=== PATIENT | female | born 1975 | race African-American/Black ===

== ENCOUNTER 2016-06-06 07:24 | Inpatient (IN) | payer OTHER ==
--- NOTE | 2016-06-06 07:29 | PDOC ---
Attending Attestation - Resident Resident Name: RonaldKatiuska - ED Attending Attestation I have performed the following: I have examined & evaluated the patient, The case was reviewed & discussed with the resident, I agree w/resident's findings & plan, Exceptions are as noted - HPI HPI: 06/06/16 07:38 The patient is a 40-year-old female with a significant past medical history of morbid obesity, 2, cholecystectomy, lap band placement, known abdominal hernia, who presents to the emergency department with abdominal pain. She denies fever, chills, sweats. She denies nausea, vomiting, diarrhea. Her last bowel movement was last night. She is passing flatus. No vaginal discharge, monogomous. 06/06/16 07:42 06/06/16 12:39 - Physicial Exam PE: 06/06/16 07:29 The patient is well-appearing and in no acute distress Vitals noted Abdominal examination is limited by body habitus but she has left lower quadrant tenderness, without rebound or guarding 06/06/16 07:39 06/06/16 08:46 - Medical Decision Making 06/06/16 07:29 The patient is well-appearing and in no acute distress Will obtain labs including lactate and CRP Will obtain CT of the abdomen and pelvis with oral and IV contrast I discussed the fact that there is no evidence of association between shellfish allergy and IV contrast allergy with the patient. She declined premedication. Will volume resuscitate with normal saline Will provide analgesia with IV Tylenol (she refused Morphine) 06/06/16 08:45 Pain improved Labs pending 06/06/16 09:04 She has requested pre-medication Will administer IV solumedrol 06/06/16 09:56 She now refuses IV contrast despite pre-medication Will CT without IV contrast 06/06/16 11:02 CT results noted Pain has almost completely resolved Will obtain transvaginal ultrasound to rule out ovarian pathology 06/06/16 11:21 Preliminary reading of ultrasound: Bilateral ovarian cysts, without free fluid Mildly elevated CRP noted Her pain continues 06/06/16 11:45 Ultrasound noted Pain continues Tenderness continues Will place on observation and request surgical consultation Clinical impression: Abdominal pain; unspecified Case discussed in detail with admitting provider including history, physical exam and ancillary studies. Admitting physician has assumed care for the patient, will follow all pending diagnostics and will complete the evaluation and treatment. 06/06/16 15:16 The patient had an episode of acute onset palpitations associated with extreme anxiety The palpitations clearly preceded the anxiety and the monitor showed an abrupt transition from a normal hear rate to the tachyacrdia No complex tachycardia with ventricular rate of approximately 160 was seen on the monitor Radial pulses and dorsal pedal pulses full, consistent with normotension Ocular massage was performed along with Valsalva maneuver Heart rate slowed rapidly to the 120s She states that she has a history of panic attack, and "mitral valve regurgitation" but apparently not prolapse EKG noted: Sinus tachycardia at 118, normal axis, normal intervals, no ST changes There are no stigmata of: WPW syndrome, LGL syndrome, Brugada syndrome, short QT syndrome, long QT syndrome Will upgrade to telemetry bed Will transfer to [facility] EKG done at that time is consistent with sinus tachycardia 06/06/16 15:50 Heart rate had returned to normal sinus rhythm with a rate of 90 She had another episode of acute onset palpitations, with heart rate in the 160s consistent with SVT IV Cardizem 5 mg given She refused any higher doses Will transfer to [facility] for telemetry admission Will add TSH and u.tox Also, given the left lower quadrant abdominal pain and episodic tachycardia, pelvic vein thrombosis with PE is a possibility. Her Wells score is 1.5 (for tachycardia) and my clinical gestalt is that she is low risk for both DVT and PE Will obtain d-dimer Hospitalist team aware and will follow 06/06/16 16:14 Heart rate in low 100s She is stable for transfer to [facility] Discharge Disposition - Diagnosis Unspecified abdominal pain - Discharge Dispostion Condition at time of disposition: Stable Last Admission D/C Date: 05/11/11 Admit: Yes - Referrals
[2016-06-06 07:30] VITALS: BMI 51.2
--- NOTE | 2016-06-06 07:30 | PDOC ---
History of Present Illness - General Chief Complaint: Pain, Acute Stated Complaint: LEFT ABD PAIN Time Seen by Provider: 06/06/16 07:28 History Source: Patient Exam Limitations: No Limitations - History of Present Illness Initial Comments: 06/06/16 07:57 The pt is a 40 year old female with a significant PSH of lap band surgery, 3 c- sections, cholecystectomy, hernia, morbidly obese who presents to ED today complaining of left sided abdominal pain that started yesterday in the afternoon. The pain is sharp, constant, located on left side of her abdomen, no radiation, alleviated by lying flat. She also reports nausea. The pt denies change in bowel habits, last BM was yesterday, no diarrhea, vomiting, constipation, blood in stool. She denies dysuria, increased frequency, urgency. She denies fever, chills. The pt denies chest pain, SOB, palpitations. Past History - Past Medical History Allergies/Adverse Reactions: Allergies Allergy/AdvReac Type Severity Reaction Status Date / Time Penicillins Allergy Verified 06/06/16 07:25 shellfish derived Allergy Verified 06/06/16 07:25 Home Medications: Ambulatory Orders No Home Medications 0 dose .ROUTE UTDICT 04/03/12 Anemia: Yes Asthma: Yes (ONSET WITH COLD SYMPTOMS) Cancer: No Cardiac Disorders: No CVA: No COPD: Yes CHF: No Dementia: No Diabetes: No GI Disorders: No Disorders: No HTN: No Hypercholesterolemia: No Liver Disease: No Seizures: No Thyroid Disease: No - Surgical History Abdominal Surgery: No Appendectomy: No Cardiac Surgery: No Cholecystectomy: Yes Lung Surgery: No Neurologic Surgery: No Orthopedic Surgery: No - Immunization History Immunization Up to Date: Yes - Psycho/Social/Smoking Cessation Hx Anxiety: No Suicidal Ideation: No Smoking Status: No Smoking History: Never smoked Have you smoked in the past 12 months: No Number of Cigarettes Smoked Daily: 0 Hx Alcohol Use: No Drug/Substance Use Hx: No Substance Use Type: None Hx Substance Use Treatment: No Review of Systems - Review of Systems Able to Perform ROS?: Yes Comments:: 06/06/16 08:06 REVIEW OF SYSTEMS CONSTITUTIONAL: Absent: fever, chills, diaphoresis, generalized weakness, malaise HEENT: Absent: rhinorrhea, nasal congestion, throat pain, throat swelling CARDIOVASCULAR: Absent: chest pain, syncope, palpitations, irregular heart rate, lightheadedness , peripheral edema RESPIRATORY: Absent: cough, shortness of breath, dyspnea with exertion, orthopnea, wheezing GASTROINTESTINAL:abdominal pain, nausea, Absent: abdominal distension, vomiting, diarrhea, constipation, melena, GENITOURINARY: Absent: dysuria, frequency, urgency, hesitancy, hematuria, flank pain, MUSCULOSKELETAL: Absent: myalgia, arthralgia, joint swelling, back pain, neck pain SKIN: Absent: rash, itching, pallor NEUROLOGIC: Absent: headache, focal weakness or paresthesias, dizziness, unsteady gait, seizure, mental status changes, bladder or bowel incontinence PSYCHIATRIC: Absent: anxiety, depression Is the patient limited Yakut proficient: Yes *Physical Exam - Physical Exam Comments: 06/06/16 08:03 GENERAL: The patient is awake, alert, and fully oriented, in no acute distress, PE limited due to pt obesity. HEAD: Normal with no signs of trauma. EYES: PERRL, extraocular movements intact, sclera anicteric, conjunctiva clear. No ptosis. ENT: Ears normal, nares patent, oropharynx clear without exudates, moist mucous membranes. NECK: Trachea midline, supple. LUNGS: Breath sounds equal, clear to auscultation bilaterally, no wheezes, no crackles, no accessory muscle use. HEART: Regular rate and rhythm, S1, S2 without murmur, rub or gallop. ABDOMEN: Obese, Soft, tender to palpation on left side of the abdomen LUQ and LLQ, nondistended, hypoactive bowel sounds, guarding on left side, no rebound. EXTREMITIES: no edema. NEUROLOGICAL: Normal speech, no facial asymmetry, no tongue deviation, gait not observed. PSYCH: Normal mood, normal affect. SKIN: Warm, dry, normal turgor, no rashes. ED Treatment Course - LABORATORY CBC & Chemistry Diagram: 06/06/16 07:43 06/06/16 07:43 Medical Decision Making - Medical Decision Making 06/06/16 08:08 The pt is a 40 year old morbidly obese female with significant PSH who presents with abdominal pain. Differential diagnosis include: diverticulitis, strangulation, pancreatitis, SBO, ovarian torsion, ovarian rupture. We ordered CBC, CMP,CRP, LA, CT abdomen with contrast. She was given Morphine for pain, Zofran and NS 1L. Awaiting results. 06/06/16 09:58 The pt continues to have concerns about IV contrast. She was offered Solu- medrol before CT, but just before having the test she started complaining that in the past she had bad reaction to contrast and she had to be hospitalized for hypertension. We decided to change CT with contrast for non-contrast and f/u with US of abdomen. 06/06/16 12:[address] and US show no acute pathology. We will keep the pt on obs to evaluate further. The pt was informed and agreed to admission. Hospitalist Dr. Andrade was contacted and accepted the pt. *DC/Admit/Observation/Transfer Diagnosis at time of Disposition: Unspecified abdominal pain - Discharge Dispostion Condition at time of disposition: Stable - Referrals Referrals: Cameron Coronel [Primary Care Provider] - Addendum entered and electronically signed by Katiuska Cardenas RES 15:20: Progress Note - Progress Note Progress Note: The pt was found to have episode of sinus tachycardia and anxiety. HR increased to 160s and decreased to 100 without administering medications. She denies chest pain. We did ECG noted sinus tachycardia, no ST changes, no acute pathology, WPW syndrome. Addendum entered and electronically signed by Katiuska Cardenas RES 15:47: Progress Note - Progress Note Progress Note: The pt had another episode of tachycardia. She was administered 5 mg of Cardizem. Hospitalist was informed and pt will be admitted to inpatient service.
[2016-06-06] MEDS ORDERED: SODIUM CHLORIDE 1,000 ML IV STA ×2 (07:36→17:11)
[2016-06-06] MEDS ORDERED: morphine CARPU-JECT 4 MG/1 ML DISP.SYRIN IVPUSH PRN (07:36)
[2016-06-06] MEDS ORDERED: ONDANSETRON 4 MG/2 ML VIAL IVPB ONE (07:53)
[2016-06-06] MEDS ORDERED: ONDANSETRON 4 MG/2 ML VIAL ONE (07:54)
[2016-06-06] MEDS ORDERED: ACETAMINOPHEN 1000 MG/100 ML VIAL (NON FORMULARY) IVPB ONE (07:55)
[2016-06-06] MEDS ORDERED: ACETAMINOPHEN INJECTION 100 ML IVPB ONE (08:02)
[2016-06-06 08:25] LABS: URINE APPEARANCE Clear; URINE BILIRUBIN Negative (NEGATIVE); URINE BLOOD Negative (NEGATIVE); URINE GLUCOSE (UA) Negative (NEGATIVE); URINE KETONE Negative (NEGATIVE); URINE LEUK ESTERASE Negative (NEGATIVE); URINE NITRITE Negative (NEGATIVE); URINE PROTEIN Negative (NEGATIVE); URINE UROBILINOGEN 0.2 E.U/dl (0.2-1.0)
[2016-06-06 08:32] LABS: URINE COLOR YELLOW
[2016-06-06 08:41] LABS: BASOPHIL 0.6 % (0-2.0); EOSINOPHIL 2.5 % (0-4.5); MCH 24.1 pg (25.7-33.7); MCHC 32.8 g/dl (32.0-36.0); MEAN CELL VOLUME 73.6 fl (80-96); NEUTROPHILS 68.7 % (42.8-82.8); PLATELET COUNT 373 K/MM3 (134-434); RDW 13.9 % (11.6-15.6); WHITE BLOOD COUNT 9.7 K/mm3 (4.0-10.0)
[2016-06-06] MEDS ORDERED: methylPREDNISolone NA SUCC 125 MG/2 ML VIAL IVPB ONE (09:04)
[2016-06-06] MEDS ORDERED: methylPREDNISolone NA SUCC 125 MG/2 ML VIAL ONE (09:04)
[2016-06-06 09:08] LABS: ALBUMIN 3.8 g/dl (3.5-5.0); ALK PHOS 49 U/L (32-92); ANION GAP 6 (8-16); BILIRUBIN,TOTAL 0.5 mg/dl (0.2-1.0); CALCIUM 8.7 mg/dl (8.4-10.2); CO2 26 mmol/L (22-28); CREATININE 0.7 mg/dl (0.6-1.3); GLUCOSE,RANDOM 113 mg/dl (74-106); SGOT/AST 17 U/L (10-42); SGPT/ALT 17 U/L (10-40); TOT PROT 7.1 g/dl (6.4-8.3)
[2016-06-06] MEDS ORDERED: IBUPROFEN 800 MG/8 ML IJ IVPB ONE ×2 (12:46→12:47)
[2016-06-06] MEDS ORDERED: dilTIAZem HCL 50 MG/10 ML - 10 ML VIAL ONE (15:12)
--- NOTE | 2016-06-06 15:41 | HP ---
CHIEF COMPLAINT: Left lower quadrant pain PCP: Dr. Coronel, [address] [facility] HISTORY OF PRESENT ILLNESS: 40 year-old female with a significant PMH of morbid obesity and umbilical hernia , and PSH of cholecystecomy (1998), lap band surgery (2009), and c-sections x 3 (2003, 2006, 2008). She presented today with a complaint of LLQ pain from which she has been suffering on an intermittent basis since 2014. This episode started yesterday and became progressively worse over the past 24 hours. The pain is sharp and constant, it does not radiate. Patient does complain of mild nausea but denies vomiting, diarrhea, or constipation. Last normal BM was earlier today in the ED. She denies hematochezia, hematuria, dysuria, increased frequency, urgency. She denies fever, sweats, chills. The pt denies chest pain, SOB, palpitations. ER course was notable for: (1) Developed narrow-complex tachycardia to 160s x 2; first episode relieved with vagal maneuver, second with cardizem 5mg x 1 (2) CTAP unremarkable (3) TVUS unremarkable Recent Travel: No PAST MEDICAL HISTORY: Morbid obesity Umbilical hernia PAST SURGICAL HISTORY: Cholecystecomy (1998) Lap band surgery (2009) C-sections x 3 (2003, 2006, 2008). Social History: Smoking: No Alcohol: No Drugs: No Family History: non-contributory Allergies Penicillins Allergy (Verified 06/06/16 07:25) shellfish derived Allergy (Verified 06/06/16 07:25) HOME MEDICATIONS: Home Medications Medication Instructions Recorded No Home Medications 0 dose .ROUTE UTDICT 04/03/12 REVIEW OF SYSTEMS CONSTITUTIONAL: Absent: fever, chills, diaphoresis, generalized weakness, malaise, loss of appetite, weight change HEENT: Absent: rhinorrhea, nasal congestion, throat pain, throat swelling, difficulty swallowing, mouth swelling, ear pain, eye pain, visual changes CARDIOVASCULAR: Absent: chest pain, syncope, palpitations, irregular heart rate, lightheadedness , peripheral edema RESPIRATORY: Absent: cough, shortness of breath, dyspnea with exertion, orthopnea, wheezing, stridor, hemoptysis GASTROINTESTINAL: Present: LLQ pain, nausea Absent: abdominal distension, vomiting, diarrhea, constipation, melena, hematochezia GENITOURINARY: Absent: dysuria, frequency, urgency, hesitancy, hematuria, flank pain, genital pain MUSCULOSKELETAL: Absent: myalgia, arthralgia, joint swelling, back pain, neck pain SKIN: Absent: rash, itching, pallor HEMATOLOGIC/IMMUNOLOGIC: Absent: easy bleeding, easy bruising, lymphadenopathy, frequent infections ENDOCRINE: Absent: unexplained weight gain, unexplained weight loss, heat intolerance, cold intolerance NEUROLOGIC: Absent: headache, focal weakness or paresthesias, dizziness, unsteady gait, seizure, mental status changes, bladder or bowel incontinence PSYCHIATRIC: Absent: anxiety, depression, suicidal or homicidal ideation, hallucinations. PHYSICAL EXAMINATION Vital Signs - 24 hr 06/06/16 15:23 Pulse Rate [ 119 H Left] Respiratory 18 Rate Blood Pressure 144/75 [Right Arm] O2 Sat by Pulse 99 Oximetry (%) GENERAL: Awake, alert, and fully oriented, in no acute distress. HEAD: Normal with no signs of trauma. EYES: Pupils equal, round and reactive to light, extraocular movements intact, sclera anicteric, conjunctiva clear. No lid lag. EARS, NOSE, THROAT: Ears normal, nares patent, oropharynx clear without exudates. Moist mucous membranes. NECK: Normal range of motion, supple without lymphadenopathy, JVD, or masses. LUNGS: Breath sounds equal, clear to auscultation bilaterally. No wheezes, and no crackles. No accessory muscle use. HEART: Regular rate and rhythm, normal S1 and S2 without murmur, rub or gallop. ABDOMEN: Obese; on distraction no tenderness, guarding, or rebound elicited MUSCULOSKELETAL: Normal range of motion at all joints. No bony deformities or tenderness. No CVA tenderness. UPPER EXTREMITIES: 2+ pulses, warm, well-perfused. No cyanosis. No clubbing. No peripheral edema. LOWER EXTREMITIES: 2+ pulses, warm, well-perfused. No calf tenderness. No peripheral edema. NEUROLOGICAL: Cranial nerves II-XII intact. Normal speech. Gait not observed. Laboratory Results - last 24 hr 06/06/16 06/06/16 06/06/16 07:43 07:43 07:43 WBC 9.7 RBC 5.11 Hgb 12.4 Hct 37.6 MCV 73.6 L MCHC 32.8 RDW 13.9 Plt Count 373 MPV 8.0 Neutrophils % 68.7 Lymphocytes % 23.9 Monocytes % 4.3 Eosinophils % 2.5 Basophils % 0.6 D-Dimer Sodium Potassium Chloride Carbon Dioxide Anion Gap BUN Creatinine Creat Clearance w eGFR Random Glucose Lactic Acid Calcium Phosphorus Magnesium Total Bilirubin AST ALT Alkaline Phosphatase C-Reactive Protein Total Protein Albumin Lipase TSH Urine Color Yellow Urine Appearance Clear Urine pH 5.0 Ur Specific [place] 1.020 Urine Protein Negative Urine Glucose (UA) Negative Urine Ketones Negative Urine Blood Negative Urine Nitrite Negative Urine Bilirubin Negative Urine Urobilinogen 0.2 e.u/dl Ur Leukocyte Esterase Negative Urine HCG, Qual Negative Opiates Screen Methadone Screen Barbiturate Screen Phencyclidine Screen Ur Amphetamines Screen MDMA (Ecstasy) Screen Benzodiazepines Screen Cocaine Screen U Marijuana (THC) Screen 06/06/16 06/06/16 06/06/16 07:43 07:54 07:54 WBC RBC Hgb Hct MCV MCHC RDW Plt Count MPV Neutrophils % Lymphocytes % Monocytes % Eosinophils % Basophils % D-Dimer Sodium 134 L Potassium 4.1 Chloride 102 Carbon Dioxide 26 Anion Gap 6 L BUN 14 Creatinine 0.7 Creat Clearance w eGFR > 60 Random Glucose 113 H Lactic Acid 0.750 Calcium 8.7 Phosphorus Magnesium Total Bilirubin 0.5 AST 17 ALT 17 Alkaline Phosphatase 49 C-Reactive Protein 1.5 H Total Protein 7.1 Albumin 3.8 Lipase 25 TSH Urine Color Urine Appearance Urine pH Ur Specific [place] Urine Protein Urine Glucose (UA) Urine Ketones Urine Blood Urine Nitrite Urine Bilirubin Urine Urobilinogen Ur Leukocyte Esterase Urine HCG, Qual Opiates Screen Methadone Screen Barbiturate Screen Phencyclidine Screen Ur Amphetamines Screen MDMA (Ecstasy) Screen Benzodiazepines Screen Cocaine Screen U Marijuana (THC) Screen 06/06/16 06/06/16 06/06/16 14:30 15:20 15:52 WBC RBC Hgb Hct MCV MCHC RDW Plt Count MPV Neutrophils % Lymphocytes % Monocytes % Eosinophils % Basophils % D-Dimer Sodium Potassium Chloride Carbon Dioxide Anion Gap BUN Creatinine Creat Clearance w eGFR Random Glucose Lactic Acid Calcium Phosphorus 3.8 Magnesium 1.8 Total Bilirubin AST ALT Alkaline Phosphatase C-Reactive Protein Total Protein Albumin Lipase TSH 0.69 Urine Color Urine Appearance Urine pH Ur Specific [place] Urine Protein Urine Glucose (UA) Urine Ketones Urine Blood Urine Nitrite Urine Bilirubin Urine Urobilinogen Ur Leukocyte Esterase Urine HCG, Qual Opiates Screen Negative Methadone Screen Negative Barbiturate Screen Negative Phencyclidine Screen Negative Ur Amphetamines Screen Negative MDMA (Ecstasy) Screen Negative Benzodiazepines Screen Negative Cocaine Screen Negative U Marijuana (THC) Screen Negative 06/06/16 16:30 WBC RBC Hgb Hct MCV MCHC RDW Plt Count MPV Neutrophils % Lymphocytes % Monocytes % Eosinophils % Basophils % D-Dimer < 200 Sodium Potassium Chloride Carbon Dioxide Anion Gap BUN Creatinine Creat Clearance w eGFR Random Glucose Lactic Acid Calcium Phosphorus Magnesium Total Bilirubin AST ALT Alkaline Phosphatase C-Reactive Protein Total Protein Albumin Lipase TSH Urine Color Urine Appearance Urine pH Ur Specific [place] Urine Protein Urine Glucose (UA) Urine Ketones Urine Blood Urine Nitrite Urine Bilirubin Urine Urobilinogen Ur Leukocyte Esterase Urine HCG, Qual Opiates Screen Methadone Screen Barbiturate Screen Phencyclidine Screen Ur Amphetamines Screen MDMA (Ecstasy) Screen Benzodiazepines Screen Cocaine Screen U Marijuana (THC) Screen ASSESSMENT/PLAN: 40 year-old female with a significant PMH of morbid obesity, and umbilical hernia, and PSH of cholecystecomy (1998), lap band surgery (2009), and c- sections x 3 (2003, 2006, 2008). Presents with LLQ pain of uncertain etiology. While in ED, went into SVT. SVT --first episode relieved with vagal maneuver, second with cardizem IVP 5mg x 1 --presently in sinus rhythm with rate in 80's, SBP 120s --utox negative; TSH wnl --cardiology consult requested LLQ pain --no tenderness elicited on my exam but was elicited by ED physicians earlier ; patient did report having a large, normal BM while in the ED which may explain these findings --CTAP unremarkable --TVUS unremarkable --d-dimer negative --Tylenol PRN --if pain persists, may need colonoscopy/GI workup as an outpatient F/E/N Fluids: PO intake adequate Electrolytes: replete as indicated Nutrition: regular diet DVT prophylaxis: subq heparin, oob, ambulation Dispo: continues to require inpatient care. Full Code. Visit type - Emergency Visit Emergency Visit: Yes ED Registration Date: 06/06/16 Care time: The patient presented to the Emergency Department on the above date and was hospitalized for further evaluation of their emergent condition. - New Patient This patient is new to me today: Yes Date on this admission: 06/09/16 - Critical Care Critical Care patient: No
[2016-06-06] MEDS ORDERED: SODIUM CHLORIDE 1,000 ML IV SCH (17:00)
[2016-06-06 17:09] LABS: MAGNESIUM 1.8 mg/dL (1.8-2.4); PHOSPHOROUS 3.8 mg/dl (2.5-4.6)
[2016-06-06] MEDS ORDERED: dilTIAZem HCL 125 MG/25 ML - 5 ML VIAL IVPUSH ONE (17:11)
[2016-06-06 18:35] LABS: URINE MARIJUANA THC NEGATIVE ng/ml (CUTOFF=50)
[2016-06-06] MEDS ORDERED: ACETAMINOPHEN 325 MG TABLET (FP) PO PRN (23:23)
[2016-06-07] MEDS: HEPARIN NA (PORCINE) 5,000 UNITS/ML 1ML VIAL SQ SCH ×3 (06:37→21:13)
[2016-06-07 08:43] LABS: ALBUMIN 3.5 g/dl (3.4-5.0); ALK PHOS 54 U/L (45-117); ANION GAP 8 (8-16); BILIRUBIN,TOTAL 0.3 mg/dL (0.2-1.0); CALCIUM 8.9 mg/dL (8.5-10.1); CO2 27 mmol/L (21-32); CREATININE 0.8 mg/dL (0.55-1.02); GLUCOSE,RANDOM 106 mg/dL (74-106); SGOT/AST 13 U/L (15-37); SGPT/ALT 23 U/L (12-78); TOT PROT 7.3 g/dl (6.4-8.2)
[2016-06-07 09:25] LABS: BASOPHIL 0.2 % (0-2.0); MCH 23.8 pg (25.7-33.7); MCHC 31.8 g/dl (32.0-36.0); MEAN CELL VOLUME 74.7 fl (80-96); MEAN PLT VOLUME 7.5 fl (7.5-11.1); NEUTROPHILS 80.2 % (42.8-82.8); PLATELET COUNT 357 K/MM3 (134-434); RDW 15.5 % (11.6-15.6); WHITE BLOOD COUNT 13.9 K/mm3 (4.0-10.0)
[2016-06-07] MEDS: METOPROLOL TARTRATE 50 MG TABLET (FP) PO SCH ×2 (11:15→22:28)
--- NOTE | 2016-06-07 12:38 | CONSULT ---
Consult - text type - Consultation Consultation Note: Cardiology 40 year-old female with a significant PMH of morbid obesity presented today with a complaint of LLQ pain from which she has been suffering on an intermittent basis since 2014. Denies any cardiac symptoms, execpt when she woke up and had a severe bout of sinus tachycardia, which patients claims due to anxiety. Recent Travel: No PAST MEDICAL HISTORY: Morbid obesity Umbilical hernia PAST SURGICAL HISTORY: Cholecystecomy (1998) Lap band surgery (2009) C-sections x 3 (2003, 2006, 2008). Social History: Smoking: No Alcohol: No Drugs: No Family History: non-contributory Allergies Penicillins Allergy (Verified 06/06/16 07:25) shellfish derived Allergy (Verified 06/06/16 07:25) PE: vitals stable normal cardio-pulmonary exam abdomen soft no leg edema Impression: NSR stable form cardiac standpoint Echo and stress test tomorrow Rec: will re-evaluate after test results
--- NOTE | 2016-06-07 17:11 | PN ---
Physical Exam: SUBJECTIVE: Patient seen and examined. Seen visiting with parents and two daughters, ambulating in hallway, very relaxed. During exam complains of persistent LLQ pain. OBJECTIVE: Vital Signs Period Temp Pulse Resp BP Sys/Bernal Pulse Ox Last 24 Hr 97.8 F-99.0 F 79-87 18-20 113-129/60-78 97-97 GENERAL: The patient is awake, alert, and fully oriented, in no acute distress. HEAD: Normal with no signs of trauma. EYES: PERRL, extraocular movements intact, sclera anicteric, conjunctiva clear. No ptosis. ENT: Ears normal, nares patent, oropharynx clear without exudates, moist mucous membranes. NECK: Trachea midline, full range of motion, supple. LUNGS: Breath sounds equal, clear to auscultation bilaterally, no wheezes, no crackles, no accessory muscle use. HEART: Regular rate and rhythm, S1, S2 without murmur, rub or gallop. ABDOMEN: Soft, nontender, nondistended, normoactive bowel sounds, no guarding, no rebound, no hepatosplenomegaly, no masses. EXTREMITIES: 2+ pulses, warm, well-perfused, no edema. NEUROLOGICAL: Cranial nerves II through XII grossly intact. Normal speech, gait not observed. PSYCH: Normal mood, normal affect. SKIN: Warm, dry, normal turgor, no rashes or lesions noted Laboratory Results - last 24 hr 06/07/16 06/07/16 06:00 06:00 WBC 13.9 H RBC 4.71 Hgb 11.2 Hct 35.2 MCV 74.7 L MCHC 31.8 L RDW 15.5 D Plt Count 357 MPV 7.5 Neutrophils % 80.2 Lymphocytes % 13.6 D Monocytes % 6.0 Eosinophils % 0.0 D Basophils % 0.2 Sodium 141 Potassium 3.9 Chloride 106 Carbon Dioxide 27 Anion Gap 8 BUN 14 Creatinine 0.8 Creat Clearance w eGFR > 60 Random Glucose 106 Calcium 8.9 Magnesium 2.0 Total Bilirubin 0.3 AST 13 L ALT 23 D Alkaline Phosphatase 54 D Total Protein 7.3 Albumin 3.5 Active Medications Generic Name Dose Route Start Last Admin Trade Name Freq PRN Reason Stop Dose Admin Acetaminophen 650 mg 06/06/16 23:23 Tylenol - PO Q6H PRN FEVER OR PAIN Heparin Sodium (Porcine) 5,000 unit 03/19/17 06:00 06/07/16 14:56 Heparin - SQ Not Given TID [facility] Metoprolol Tartrate 12.5 mg 06/07/16 11:15 06/07/16 11:15 Lopressor - PO Not Given BID [facility] ASSESSMENT/PLAN 40 year-old female with a significant PMH of morbid obesity, and umbilical hernia, and PSH of cholecystecomy (1998), lap band surgery (2009), and c- sections x 3 (2003, 2006, 2008). Presents with LLQ pain of uncertain etiology. While in ED, went into SVT. SVT --no further episodes of SVT since ED --utox negative; TSH wnl --continue low dose metoprolol --echo and stress tomorrow --cardiology following LLQ pain --no tenderness again on exam today --CTAP unremarkable --TVUS unremarkable --d-dimer negative --colonoscopy/GI workup as an outpatient F/E/N Fluids: PO intake adequate Electrolytes: replete as indicated Nutrition: regular diet DVT prophylaxis: subq heparin, oob, ambulation Dispo: Echo and stress tomorrow. Continues to require inpatient care. Full Code. Visit type - Emergency Visit Emergency Visit: Yes ED Registration Date: 06/06/16 Care time: The patient presented to the Emergency Department on the above date and was hospitalized for further evaluation of their emergent condition. - New Patient This patient is new to me today: No - Critical Care Critical Care patient: No
[2016-06-07] MEDS: FERROUS SO4 325 MG TABLET (FP) PO SCH (21:11)
[2016-06-08] MEDS: HEPARIN NA (PORCINE) 5,000 UNITS/ML 1ML VIAL SQ SCH ×2 (06:05→14:22)
[2016-06-08 11:24] LABS: BASOPHIL 0.6 % (0-2.0); EOSINOPHIL 0.9 % (0-4.5); MCH 23.9 pg (25.7-33.7); MCHC 32.3 g/dl (32.0-36.0); MEAN CELL VOLUME 74.1 fl (80-96); NEUTROPHILS 65.9 % (42.8-82.8); RDW 15.5 % (11.6-15.6); WHITE BLOOD COUNT 12.4 K/mm3 (4.0-10.0)
[2016-06-08] MEDS: METOPROLOL TARTRATE 50 MG TABLET (FP) PO SCH (11:24)
[2016-06-08] MEDS: FERROUS SO4 325 MG TABLET (FP) PO SCH (11:24)
[2016-06-08 11:42] LABS: ALBUMIN 3.7 g/dl (3.4-5.0); ALK PHOS 54 U/L (45-117); ANION GAP 8 (8-16); BILIRUBIN,TOTAL 0.3 mg/dL (0.2-1.0); CALCIUM 9.2 mg/dL (8.5-10.1); CO2 27 mmol/L (21-32); CREATININE 0.8 mg/dL (0.55-1.02); GLUCOSE,RANDOM 93 mg/dL (74-106); MAGNESIUM 2.1 mg/dL (1.8-2.4); SGOT/AST 19 U/L (15-37); SGPT/ALT 26 U/L (12-78); TOT PROT 7.4 g/dl (6.4-8.2)
[2016-06-08 14:52] LABS: PLATELET COUNT 145 K/MM3 (134-434)
[2016-06-08 14:53] LABS: PLATELET ESTIMATE ADEQUATE (NORMAL)
[2016-06-08] MEDS ORDERED: ASPIRIN COATED 81 MG TABLET.EC PO SCH (16:15)
--- NOTE | 2016-06-08 16:43 | PN ---
Physical Exam: SUBJECTIVE: Patient seen and examined at bedside. Patient advised this morning by FLOWER at [facility] that recent pre-operative bloodwork (in anticipation of gastric sleeve) showed +H.pylori. Called FLOWER Herrera ([phone]) who confirmed and will fax test results. Advised patient of positive stress test results. OBJECTIVE: Vital Signs Period Temp Pulse Resp BP Sys/Bernal Pulse Ox Last 24 Hr 97.2 F-98.8 F 68-78 18-20 105-159/64-96 97-97 GENERAL: The patient is awake, alert, and fully oriented, in mild emotional distress due to positive stress test result, tearful. HEAD: Normal with no signs of trauma. EYES: PERRL, extraocular movements intact, sclera anicteric, conjunctiva clear. No ptosis. LUNGS: Breath sounds equal, clear to auscultation bilaterally, no wheezes, no crackles, no accessory muscle use. HEART: Regular rate and rhythm, S1, S2 without murmur, rub or gallop. ABDOMEN: Soft, nontender, nondistended, normoactive bowel sounds, no guarding, no rebound NEUROLOGICAL: Cranial nerves II through XII grossly intact. Normal speech, steady gait. Laboratory Results - last 24 hr 06/08/16 06/08/16 10:55 10:55 WBC 12.4 H RBC 4.96 Hgb 11.9 Hct 36.8 MCV 74.1 L MCHC 32.3 RDW 15.5 Plt Count 145 D MPV 8.0 Neutrophils % 65.9 Lymphocytes % 27.1 D Monocytes % 5.5 Eosinophils % 0.9 D Basophils % 0.6 Platelet Estimate Adequate Platelet Comment No clumping noted Sodium 139 Potassium 4.5 Chloride 104 Carbon Dioxide 27 Anion Gap 8 BUN 16 Creatinine 0.8 Creat Clearance w eGFR > 60 Random Glucose 93 Calcium 9.2 Magnesium 2.1 Total Bilirubin 0.3 AST 19 D ALT 26 Alkaline Phosphatase 54 Total Protein 7.4 Albumin 3.7 Active Medications Generic Name Dose Route Start Last Admin Trade Name Freq PRN Reason Stop Dose Admin Acetaminophen 650 mg 06/06/16 23:23 Tylenol - PO Q6H PRN FEVER OR PAIN Aspirin 81 mg 06/08/16 16:15 Ecotrin - PO DAILY DORI Ferrous Sulfate 325 mg 06/07/16 21:00 06/08/16 11:24 Feosol - PO 325 mg DAILY DORI Administration Heparin Sodium (Porcine) 5,000 unit 06/07/16 06:00 06/08/16 14:22 Heparin - SQ 5,000 unit TID DORI Administration Metoprolol Tartrate 12.5 mg 06/07/16 11:15 06/08/16 11:24 Lopressor - PO Not Given BID DORI ASSESSMENT/PLAN 40 year-old female with a significant PMH of morbid obesity, and umbilical hernia, and PSH of cholecystecomy (1998), lap band surgery (2009), and c- sections x 3 (2003, 2006, 2008). Presents with LLQ pain of uncertain etiology. While in ED, went into SVT. SVT --no further episodes of SVT since ED --utox negative; TSH wnl --continue low dose metoprolol --06/08/16 Echo: normal LV, normal RV, no valvular pathology --06/08/16 Nuclear stress: moderate zone of inferior and inferoseptal reversible defect from base to apex compatible with moderate intensity ischemia ; EF 65%; discussed with Dr. Nicole who has suspicion this is artifact due to patient's body habitus; OK to discharge the patient with followup in his office tomorrow of the next day LLQ pain --advised by PA at [facility] patient recently tested +H.pylori; waiting for fax confirmation before prescribing antibiotics F/E/N Fluids: PO intake adequate Electrolytes: replete as indicated Nutrition: regular diet DVT prophylaxis: subq heparin, oob, ambulation Dispo: Echo and stress tomorrow. Continues to require inpatient care. Full Code.
[2016-06-08 17:58] VITALS: BP 123/76; PULSE 81; TEMP 98
--- NOTE | 2016-06-08 18:15 | DS ---
Physical Exam: SUBJECTIVE: Patient seen and examined at bedside. Still has persistent LLQ pain , no better, no worse. Denies chest pain, pressure, SOB, HUBBARD, orthopnea, or any other cardiac symptom. OBJECTIVE: Vital Signs Period Temp Pulse Resp BP Sys/Bernal Pulse Ox Last 24 Hr 97.2 F-98.5 F 72-81 18-20 123-159/75-96 97-97 PHYSICAL EXAM GENERAL: The patient is awake, alert, and fully oriented, in mild emotional distress due to positive stress test result, tearful. HEAD: Normal with no signs of trauma. EYES: PERRL, extraocular movements intact, sclera anicteric, conjunctiva clear. No ptosis. LUNGS: Breath sounds equal, clear to auscultation bilaterally, no wheezes, no crackles, no accessory muscle use. HEART: Regular rate and rhythm, S1, S2 without murmur, rub or gallop. ABDOMEN: Soft, nontender, nondistended, normoactive bowel sounds, no guarding, no rebound NEUROLOGICAL: Cranial nerves II through XII grossly intact. Normal speech, steady gait. LABS Laboratory Results - last 24 hr 06/08/16 06/08/16 10:55 10:55 WBC 12.4 H RBC 4.96 Hgb 11.9 Hct 36.8 MCV 74.1 L MCHC 32.3 RDW 15.5 Plt Count 145 D MPV 8.0 Neutrophils % 65.9 Lymphocytes % 27.1 D Monocytes % 5.5 Eosinophils % 0.9 D Basophils % 0.6 Platelet Estimate Adequate Platelet Comment No clumping noted Sodium 139 Potassium 4.5 Chloride 104 Carbon Dioxide 27 Anion Gap 8 BUN 16 Creatinine 0.8 Creat Clearance w eGFR > 60 Random Glucose 93 Calcium 9.2 Magnesium 2.1 Total Bilirubin 0.3 AST 19 D ALT 26 Alkaline Phosphatase 54 Total Protein 7.4 Albumin 3.7 HOSPITAL COURSE: Date of Admission:06/06/16 Date of Discharge: 06/08/16 40 year-old female with a significant PMH of morbid obesity, and umbilical hernia, and PSH of cholecystecomy (1998), lap band surgery (2009), and c- sections x 3 (2003, 2006, 2008). Presented to the ED with a complaint of LLQ pain intermittent for at least a year but much worse over the previous 24 hours. During the course of the patient's hospital stay, she disclosed that she had a remote history of H.pylori for which she never completed the course of treatment. Patient disclosed earlier today that she recently had stool testing done for H.pylori and she was informed this morning that it was positive. A call was placed to to FLOWER An at [facility] (([phone]) and she confirmed the test result. She also faxed a copy of the lab report which shows stool + H.pylor collected on 05/28 and resulted on 06/01/16. Patient will be discharged on quadruple therapy and will follow up at [facility]. FLOWER [place] and patient's PCP, Dr. Edmonds, will be sent a copy of this discharge summary. While patient was in the ED, she went into SVT to the 160s. The episode was broken with vagal maneuver. A short time later she again went into SVT and the episode broke with diltiazem 5mg IVP x 1. Patient was transferred to the telemetry unit. No further episodes of SVT occurred. An echo was done earlier today which showed normal LV, normal RV, and no valvular pathology. A nuclear stress test today showed a moderate zone of inferior and inferoseptal reversible defect from base to apex compatible with moderate intensity ischemia ; EF 65%. A review of patient's chart shows patient underwent nuclear stress testing in 2012 with an almost identical finding. In the earlier study, it was remarked that it was a difficult study due to patient's morbid obesity. In discussion with Dr. Nicole today, he is of the view that today's test might be similarly limited. The patient informs us that after the nuclear stress test 3 years ago she underwent more extensive testing at [facility] and was told she had no ischemic heart disease. Dr. Nicole, myself, and the patient are in agreement that the patient will go home this evening and she will followup with Dr. Nicole in his office in the morning. She will remain on low dose metoprolol and low dose ASA until she sees Dr. Nicole. Minutes to complete discharge: 35 Discharge Summary Reason For Visit: TACHYCARDIA Current Active Problems Unspecified abdominal pain (Acute) Condition: Stable - Instructions Referrals: Sinanaj,Xhevat [Primary Care Provider] - - Home Medications Comprehensive Discharge Medication List: Ambulatory Orders No Home Medications 0 dose .ROUTE UTDICT 04/03/12 Ferrous Sulfate 325 mg PO DAILY 06/07/16 This patient is new to me today: No Emergency Visit: Yes ED Registration Date: 06/06/16 Care time: The patient presented to the Emergency Department on the above date and was hospitalized for further evaluation of their emergent condition. Critical Care patient: No - Discharge Referral Referred to [facility] Med P.C.: No
--- NOTE | 2016-06-08 20:36 | EKG ---
Test Reason : Blood Pressure : / mmHG Vent. Rate : 118 BPM Atrial Rate : 118 BPM P-R Int : 170 ms QRS Dur : 086 ms QT Int : 320 ms P-R-T Axes : 064 -14 014 degrees QTc Int : 448 ms SINUS TACHYCARDIA POOR R WAVE PROGRESSION WHEN COMPARED WITH ECG OF 05-APR-2011 05:04, VENT. RATE HAS INCREASED BY 42 BPM Confirmed by LIBIA FAUST MD ([id number]) on 06/08/2016 8:36:21 PM Referred By: Confirmed By:LIBIA FAUST MD
== END 2016-06-08 19:38 | disposition home or self-care (01) | DRG 201 ==
LOC: FER 07:24 → FM/S 14:24 → J4W 18:30 → OBSVTOIN 18:30 → J4W 19:39 → FM/S 19:39
PROVIDERS: ADMIT Internal Medicine; ATTEND Nurse Practitioner Acute Care
DX: I47.1 Supraventricular tachycardia (principal); R10.32 Left lower quadrant pain; E66.01 Morbid (severe) obesity due to excess calories; Z68.43 Body mass index [BMI] 50.0-59.9, adult
CPT/HCPCS: 36415; 74176-TC; 76856-TC; 78452-TC; 80053; 80307; 81003; 83605; 83690; 83735; 84100; 84443; 84703; 85025; 85379; 86140; 93005; 93017; 93306-TC; 99285-25; A9502; G0378; J1644

== ENCOUNTER 2016-10-24 02:05 | Emergency (ER) | payer OTHER ==
--- NOTE | 2016-10-24 02:36 | PDOC ---
History of Present Illness - General Chief Complaint: Pain Stated Complaint: LEFT SIDE ABDOMINAL PAIN Time Seen by Provider: 10/24/16 02:33 History Source: Patient Exam Limitations: No Limitations - History of Present Illness Initial Comments: 10/24/16 02:35 This is a 40-year-old female who comes in complaining of abdominal pain. Patient said she has had the pain that is been intermittent times over a year. Patient denies any associated nausea vomiting or diarrhea. Patient denies any fevers or chills. Patient Dr. lazaro told her to come to the emergency room for a CT of her abdomen. Patient is otherwise morbidly obese. PAST MEDICAL HISTORY: no significant history PAST SURGICAL HISTORY: no significant history FAMILY HISTORY: no pertinant history SOCIAL HISTORY: Pt lives with family and is employed. MEDICATIONS: reviewed ALLERGIES: As per nursing notes Review of Systems General: No fevers or chills, no weakness, no weight loss HEENT: No change in vision. No sore throat,. No ear pain CardioVascular: No chest pain or shortness of breath Respiratory:No cough, or wheezing. Gastrointestinal: no nausea, vomitting, diarrhea or constipation, No rectal bleeding, abdominal pain as per history of present illness Genitourinary: No dysuria, hematuria, or frequency Musculoskeletal: No joint or muscle pain or swelling Neurologic: No headache, vertigo, dizziness or loss of consciousness Psychiatric: nor depression Skin: No rashes or easy bruising Endocrine: no increased thirst or abnormal weight change Allergic: no skin or latex allergy All other systems reviewed and normal Exam: General: Well-nourished well-developed individual, no acute distress HEENT: Throat: Normal, tonsils normal, no erythema or exudate Neck: Supple, no meningeal signs, no lymphadenopathy Eyes::Pupils equal reactive and round, extraocular motion intact Chest: Nontender to palpation Cardiac: S1-S2 normal, regular rate and rhythm, no murmurs rubs or gallops Respiratory: Lungs clear to auscultation bilateral Abdomen: Soft, nondistended, normal bowel sounds, there is some tenderness on palpation left mid abdominal area no guarding or rebound. Extremities: Warm, dry, no cyanosis, clubbing, or edema Skin: No rashes Neuro: Alert and oriented x3, nonfocal exam, grossly intact, normal gait Psych: Normal mood and affect 10/24/16 06:43 Reevaluation. Patient is sleeping comfortably, her pain is resolved at this point. Assessment and plan: This is a 40-year-old female who is morbidly obese and comes in complaining of left sided abdominal pain. Patient had a workup including CBC and chemistries. Patient had a mildly elevated CBC of 12.1 but no left shift. Otherwise her chemistries were unremarkable. Patient had a CAT scan that was negative for any acute pathology. Patient is status post lap band which was negative, patient does have a hernia in the area for her pain was most likely this is the source of patient's pain and has been the source of her pain because of his been intermittent discussed with patient how to try to gently reduce a hernia on her own. The hernia does not contain bowel only contains fat. Patient is comfortable at this time the pain is resolved. Patient discharged home will follow-up with her primary care doctor Also recommended that patient discussed with her primary care doctor or surgeon possible repair of hernia Past History - Past Medical History Allergies/Adverse Reactions: Allergies Allergy/AdvReac Type Severity Reaction Status Date / Time Penicillins Allergy Verified 10/24/16 02:06 shellfish derived Allergy Verified 10/24/16 02:06 Home Medications: Ambulatory Orders Ferrous Sulfate 325 mg PO DAILY #0 06/08/16 Ferrous Sulfate [Feosol] 325 mg PO DAILY 06/08/16 Anemia: Yes Asthma: Yes (ONSET WITH COLD SYMPTOMS) Cancer: No Cardiac Disorders: No CVA: No COPD: Yes CHF: No Dementia: No Diabetes: No GI Disorders: No Disorders: No HTN: No Hypercholesterolemia: No Liver Disease: No Seizures: No Thyroid Disease: No - Surgical History Abdominal Surgery: No Appendectomy: No Cardiac Surgery: No Cholecystectomy: Yes Lung Surgery: No Neurologic Surgery: No Orthopedic Surgery: No - Immunization History Immunization Up to Date: Yes - Psycho/Social/Smoking Cessation Hx Anxiety: No Suicidal Ideation: No Smoking Status: No Smoking History: Never smoked Have you smoked in the past 12 months: No Number of Cigarettes Smoked Daily: 0 Information on smoking cessation initiated: No Hx Alcohol Use: No Drug/Substance Use Hx: No Substance Use Type: None Hx Substance Use Treatment: No *Physical Exam - Vital Signs Last Vital Signs Temp Pulse Resp BP Pulse Ox 98.8 F 78 18 145/86 99 10/24/16 02:12 10/24/16 02:12 10/24/16 02:12 10/24/16 02:12 10/24/16 02:12 ED Treatment Course - LABORATORY CBC & Chemistry Diagram: 10/24/16 03:03 10/24/16 03:03 *DC/Admit/Observation/Transfer Diagnosis at time of Disposition: Unspecified abdominal pain, Abdominal wall hernia - Discharge Dispostion Disposition: HOME Condition at time of disposition: Good Admit: No - Patient Instructions Additional Instructions: Tylenol or Motrin as needed for the pain. Talk to your primary care doctor for possible referral to a surgeon for repair of the hernia Return to the emergency department immediately with ANY new, persistent or worsening symptoms. Continue any medications as previously prescribed by your physician. You should follow up with your primary doctor as soon as possible regarding today's emergency department visit. . Please make sure your doctor reviews the results of your emergency evaluation. Thank you for coming to the Emergency Department today for your care. It was a pleasure to see you today. Please note that your evaluation is INCOMPLETE until you follow-up with your doctor.
[2016-10-24 02:57] VITALS: BP 145/86; PULSE 78; TEMP 98.8; BMI 51.2
[2016-10-24 03:40] LABS: BASOPHIL 0.4 % (0-2.0); EOSINOPHIL 2.6 % (0-4.5); MCH 23.2 pg (25.7-33.7); MCHC 31.6 g/dl (32.0-36.0); MEAN CELL VOLUME 73.2 fl (80-96); MEAN PLT VOLUME 7.7 fl (7.5-11.1); NEUTROPHILS 65.6 % (42.8-82.8); PLATELET COUNT 336 K/MM3 (134-434); RDW 16.2 % (11.6-15.6)
[2016-10-24 04:06] LABS: ALBUMIN 3.5 g/dl (3.4-5.0); ALK PHOS 74 U/L (45-117); ANION GAP 10 (8-16); BILIRUBIN,TOTAL 0.4 mg/dL (0.2-1.0); CALCIUM 8.8 mg/dL (8.5-10.1); CO2 26 mmol/L (21-32); CREATININE 0.7 mg/dL (0.55-1.02); GLUCOSE,RANDOM 92 mg/dL (74-106); SGPT/ALT 31 U/L (12-78); TOT PROT 7.6 g/dl (6.4-8.2)
[2016-10-24 04:08] LABS: SGOT/AST 39 U/L (15-37)
[2016-10-24 05:10] LABS: URINE APPEARANCE SLCLOUDY; URINE BILIRUBIN NEGATIVE (NEGATIVE); URINE BLOOD NEGATIVE (NEGATIVE); URINE COLOR LTYELLOW; URINE GLUCOSE (UA) NEGATIVE (NEGATIVE); URINE KETONE NEGATIVE (NEGATIVE); URINE LEUK ESTERASE NEGATIVE (NEGATIVE); URINE NITRITE NEGATIVE (NEGATIVE); URINE PROTEIN NEGATIVE (NEGATIVE); URINE UROBILINOGEN NEGATIVE mg/dL (0.2-1.0)
== END 2016-10-24 07:01 | disposition home or self-care (01) ==
LOC: FER 02:05
DX: K43.9 Ventral hernia without obstruction or gangrene (principal); R10.9 Unspecified abdominal pain
CPT/HCPCS: 36415; 74176-TC; 80053; 81003; 84703; 85025; 99283-25

== ENCOUNTER 2017-05-20 01:59 | Emergency (ER) | payer OTHER ==
[2017-05-20 02:18] VITALS: BMI 51.2
[2017-05-20] MEDS ORDERED: SODIUM CHLORIDE 1,000 ML IV STA (03:43)
--- NOTE | 2017-05-20 03:43 | PDOC ---
History of Present Illness - General Chief Complaint: Pain Stated Complaint: LEFT SIDE STOMACH PAIN Time Seen by Provider: 05/20/17 03:43 - History of Present Illness Initial Comments: 41-year-old female with history of gastric banding complaining of left upper quadrant pain for the last 2 days denies fever, nausea, vomiting, diarrhea, urinary symptoms, flank pain, denies past medical history Past History - Past Medical History Allergies/Adverse Reactions: Allergies Allergy/AdvReac Type Severity Reaction Status Date / Time Penicillins Allergy Verified 05/20/17 03:41 shellfish derived Allergy Verified 05/20/17 03:41 Home Medications: Ambulatory Orders NK [No Known Home Medication] 05/20/17 Anemia: Yes Asthma: Yes (ONSET WITH COLD SYMPTOMS) Cancer: No Cardiac Disorders: No CVA: No COPD: Yes CHF: No Dementia: No Diabetes: No GI Disorders: No Disorders: No HTN: No Hypercholesterolemia: No Liver Disease: No Seizures: No Thyroid Disease: No - Surgical History Abdominal Surgery: No Appendectomy: No Cardiac Surgery: No Cholecystectomy: Yes Lung Surgery: No Neurologic Surgery: No Orthopedic Surgery: No - Immunization History Immunization Up to Date: Yes - Suicide/Smoking/Psychosocial Hx Smoking Status: No Smoking History: Never smoked Have you smoked in the past 12 months: No Number of Cigarettes Smoked Daily: 0 Information on smoking cessation initiated: No Hx Alcohol Use: No Drug/Substance Use Hx: No Substance Use Type: None Hx Substance Use Treatment: No *Physical Exam - Vital Signs Last Vital Signs Temp Pulse Resp BP Pulse Ox 97.8 F 75 17 189/92 100 05/20/17 02:07 05/20/17 02:07 05/20/17 02:07 05/20/17 02:07 05/20/17 02:07 - Physical Exam General Appearance: Yes: Appropriately Dressed, Obese Respiratory/Chest: positive: Lungs Clear, Normal Breath Sounds Cardiovascular: positive: Regular Rhythm, Regular Rate Gastrointestinal/Abdominal: positive: Normal Bowel Sounds, Tender (LUQ), Soft Extremity: positive: Normal Capillary Refill, Normal Inspection, Normal Range of Motion Integumentary: positive: Normal Color, Dry, Warm Neurologic: positive: Fully Oriented, Alert, Normal Mood/Affect Heart Score/ECG Review - ECG Intrepretation Rhythm: Regular Rhythm Comment:: 05/20/17 06:43 78BPM: NSR ED Treatment Course - LABORATORY CBC & Chemistry Diagram: 05/20/17 04:25 05/20/17 04:25 Medical Decision Making - Medical Decision Making 05/20/17 06:05 Patient has no pain after pepcid and maalox. 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 will d/c home *DC/Admit/Observation/Transfer Diagnosis at time of Disposition: LUQ abdominal pain, Gastritis - Referrals Referrals: Rosa Isela Wolfe MD [Primary Care Provider] - Charly Skinner DO [Staff Physician] - Call tomorrow - Patient Instructions Printed Discharge Instructions: Gastritis (Alternative Therapy) Additional Instructions: start a bland diet. take maalox 30 ml every 6 hours as needed for gas/ bloating . follow up with your doctor as soon as possible. return to the ER if symptoms worsen. - Post Discharge Activity
[2017-05-20] MEDS ORDERED: MAG HYDROX/AL HYDROX/SIMETH 30 ML UNIT-DOSE CUP PO ONE (03:59)
[2017-05-20] MEDS ORDERED: FAMOTIDINE 20 MG/50 ML IVPB 20 MG/50 ML MG IVPB ONE (04:00)
[2017-05-20] MEDS ORDERED: MAG HYDROX/AL HYDROX/SIMETH 30 ML UNIT-DOSE CUP ONE (04:01)
[2017-05-20] MEDS ORDERED: FAMOTIDINE IV 20 MG/12 ML VIAL IVPUSH ONE (04:03)
[2017-05-20 04:14] LABS: URINE APPEARANCE CLEAR; URINE BILIRUBIN NEGATIVE (NEGATIVE); URINE BLOOD NEGATIVE (NEGATIVE); URINE COLOR LTYELLOW; URINE GLUCOSE (UA) NEGATIVE (NEGATIVE); URINE KETONE NEGATIVE (NEGATIVE); URINE LEUK ESTERASE NEGATIVE (NEGATIVE); URINE NITRITE NEGATIVE (NEGATIVE); URINE PROTEIN NEGATIVE (NEGATIVE); URINE UROBILINOGEN NEGATIVE mg/dL (0.2-1.0)
--- NOTE | 2017-05-20 04:34 | PDOC ---
*Physical Exam - Vital Signs Last Vital Signs Temp Pulse Resp BP Pulse Ox 97.8 F 75 17 141/82 100 05/20/17 02:07 05/20/17 02:07 05/20/17 02:07 05/20/17 03:59 05/20/17 02:07 ED Treatment Course - ADDITIONAL ORDERS Additional order review: Laboratory Results 05/20/17 04:04 Urine Color Ltyellow Urine Appearance Clear Urine pH 5.0 Ur Specific [place] 1.014 Urine Protein Negative Urine Glucose (UA) Negative Urine Ketones Negative Urine Blood Negative Urine Nitrite Negative Urine Bilirubin Negative Urine Urobilinogen Negative Ur Leukocyte Esterase Negative - Medications Given in the ED: ED Medications Discontinued Medications Generic Name Dose Route Start Last Admin Trade Name Freq PRN Reason Stop Dose Admin Al Hydroxide/Mg Hydroxide 30 ml 05/20/17 03:59 05/20/17 04:33 Mylanta Oral Suspension - PO 05/20/17 04:00 30 ml ONCE ONE Administration Famotidine 20 mg in 12 mls @ 144 mls/hr 05/20/17 04:03 05/20/17 04:33 Pepcid 20 Mg/12 Ml Push IVPUSH 05/20/17 04:07 144 mls/hr NOW ONE Administration Medical Decision Making - Medical Decision Making 05/20/17 04:34 agree with care from BRODY Bonner *DC/Admit/Observation/Transfer - Referrals Referrals: Rosa Isela Wolfe MD [Primary Care Provider] - - Patient Instructions - Post Discharge Activity
[2017-05-20 04:41] LABS: BASO % 0.5 % (0-2.0); EOS % 1.7 % (0-4.5); HEMATOCRIT 37.3 % (32.4-45.2); HEMOGLOBIN 12.4 GM/dL (10.7-15.3); LYMPH % 18.2 % (8-40); MCH 23.9 pg (25.7-33.7); MCHC 33.2 g/dl (32.0-36.0); MEAN CELL VOLUME 72.2 fl (80-96); MEAN PLT VOLUME 7.5 fl (7.5-11.1); MONO % 5.3 % (3.8-10.2); NEUT % 74.3 % (42.8-82.8); PLATELET COUNT 383 K/MM3 (134-434); RBC 5.16 M/mm3 (3.60-5.2); RDW 16.4 % (11.6-15.6); WHITE BLOOD COUNT 12.7 K/mm3 (4.0-10.0)
[2017-05-20 05:39] LABS: ALK PHOS 75 U/L (45-117); ANION GAP 10 (8-16); BILIRUBIN,TOTAL 0.3 mg/dL (0.2-1.0); BLOOD UREA NITROGEN 14 mg/dL (7-18); CALCIUM 9.8 mg/dL (8.5-10.1); CHLORIDE 102 mmol/L (98-107); CO2 27 mmol/L (21-32); CREATININE 0.7 mg/dL (0.55-1.02); GLUCOSE,RANDOM 118 mg/dL (74-106); LIPASE 142 U/L (73-393); POTASSIUM 4.3 mmol/L (3.5-5.1); SGOT/AST 17 U/L (15-37); SGPT/ALT 22 U/L (12-78); SODIUM 139 mmol/L (136-145); TOT PROT 8.5 g/dl (6.4-8.2)
[2017-05-20 06:58] VITALS: BP 114/67; PULSE 72; TEMP 98
--- NOTE | 2017-05-20 11:36 | EKG ---
Test Reason : Blood Pressure : / mmHG Vent. Rate : 078 BPM Atrial Rate : 078 BPM P-R Int : 136 ms QRS Dur : 088 ms QT Int : 382 ms P-R-T Axes : 061 004 027 degrees QTc Int : 435 ms POOR DATA QUALITY, INTERPRETATION MAY BE ADVERSELY AFFECTED NORMAL SINUS RHYTHM NORMAL ECG WHEN COMPARED WITH ECG OF 06-JUN-2016 15:14, VENT. RATE HAS DECREASED BY 40 BPM NONSPECIFIC T WAVE ABNORMALITY NOW EVIDENT IN ANTERIOR LEADS Confirmed by HARISH PARMAR MD ([id number]) on 05/20/2017 11:35:58 AM Referred By: Confirmed By:HARISH PARMAR MD
== END 2017-05-20 06:58 | disposition home or self-care (01) ==
LOC: JER 01:59
PROC: 3E0337Z Introduction of Electrolytic and Water Balance Substance into Peripheral Vein, Percutaneous Approach (ICD-10-PCS; principal; 2017-05-20)
PROC: 3E033GC Introduction of Other Therapeutic Substance into Peripheral Vein, Percutaneous Approach (ICD-10-PCS; 2017-05-20)
DX: K29.70 Gastritis, unspecified, without bleeding (principal); Z98.84 Bariatric surgery status; J44.9 Chronic obstructive pulmonary disease, unspecified; J45.909 Unspecified asthma, uncomplicated; D64.9 Anemia, unspecified
CPT/HCPCS: 36415; 80053; 81003; 83690; 84703; 85025; 93005; 93010; 99283-25

== ENCOUNTER 2018-08-14 16:50 | Emergency (ER) | payer OTHER | END 2018-08-14 18:07 | disposition home or self-care (01) | LOC: JERFT 16:50 ==